=== PATIENT | male | born 1950 | race Caucasian/White ===

== ENCOUNTER 2020-08-30 15:21 | Emergency (ER) | payer OTHER ==
[~2020-08-30] VITALS: Ht 177.8 cm; Wt 97.1 kg
[~2020-08-30 15:21] MED LIST: HYZAAR 100-121 UDTAB; NORVASC2.5 MG
[2020-08-30] MEDS ORDERED: HYZAAR 100-251 EACH (15:29)
[2020-08-30] MEDS ORDERED: LIPITOR40 M1 (15:30)
[2020-08-30] MEDS ORDERED: NORVASC10 MG (15:30)
[2020-08-30] MEDS ORDERED: TOPROL XL25 M1 (15:30)
[2020-08-30] MEDS ORDERED: SYMBICORT 16010.2 GM (15:38)
[2020-08-30] MEDS ORDERED: PROVENTIL HFA6.7 GM (15:38)
[2020-08-30] MEDS ORDERED: CLARITIN10 M1 (15:38)
== END 2020-08-30 17:17 | disposition home or self-care (01) ==
LOC: ER 15:21
DX: I16.1 Hypertensive emergency (principal); I10 Essential (primary) hypertension